=== PATIENT | female | born 1965 | race Hispanic/Latino ===

== ENCOUNTER → 2023-05-08 | Outpatient (CLI) | payer OTHER ==
[~2023-05-08] MED LIST: CITA10TA89 PO; ESTR0.5T2 PO; LIRA0.6P SQ; LISI1TAB53 PO; PRAV10TA39 PO; SITA1TBM4 PO; SUMA50TA17 PO
== END | disposition home or self-care (01) ==
LOC: RAH 07:09
PROVIDERS: ATTEND Internal Medicine Gastroenterology
DX: R10.13 Epigastric pain (principal); R68.81 Early satiety; R11.0 Nausea
CPT/HCPCS: 78264; A9541

== ENCOUNTER → 2023-06-04 | Outpatient (CLI) | payer OTHER ==
[2023-06-04 12:33] LABS: BILIRUBIN,TOTAL 0.4 mg/dL (0.2-1.0); CREATININE 0.9 mg/dL (0.5-1.5); POTASSIUM 4.5 mmol/L (3.5-5.1); TOTAL PROTEIN, SERUM 8.4 g/dL (6.0-8.3)
== END | disposition home or self-care (01) ==
LOC: LAB 09:03
PROVIDERS: ATTEND Student in an Organized Health Care Education/Training Program
DX: I10 Essential (primary) hypertension (principal); E78.2 Mixed hyperlipidemia
CPT/HCPCS: 36415; 80053; 80061

== ENCOUNTER 2024-05-04 17:26 | Emergency (ER) | payer OTHER ==
[~2024-05-04] VITALS: Ht 162.6 cm; Wt 112.5 kg
--- NOTE | 2024-05-04 18:57 | HMCIMG ---
CT PELVIS W/O CONTRAST REASON: inability to ambulate left lumbar pain COMPARISON: None TECHNIQUE: Axial images are obtained from iliac crests through the symphysis pubis with bone and soft tissue window presentation. Sagittal and coronal reconstruction images were then performed. FINDINGS: There are normal-appearing bones of the pelvis. There are no fractures. SI joints appear unremarkable. Proximal femurs appear normal. Soft tissues of the pelvis appear unremarkable as well. IMPRESSION: -1. Negative noncontrast CT pelvis.
[2024-05-04 18:58] LABS: APPEARANCE,URINE CLEAR (CLEAR); BILIRUBIN,URINE NEGATIVE (NEGATIVE); COLOR,URINE LIGHT-YELLOW (YELLOW); GLUCOSE, URINE (UA) NEGATIVE (NEGATIVE); KETONES,URINE NEGATIVE (NEGATIVE); LEUKOCYTE ESTERASE ,URINE NEGATIVE Leu/uL (NEGATIVE); NITRATE,URINE NEGATIVE (NEGATIVE); OCCULT BLOOD,URINE NEGATIVE (NEGATIVE); PH,URINE 5.5 (5.0-8.0); PROTEIN,URINE NEGATIVE (NEGATIVE); UROBILINOGEN,URINE 0.2 mg/dL (0.2-1.0)
[2024-05-04 19:08] LABS: ADD UA MICROSCOPIC NO
--- NOTE | 2024-05-04 19:11 | HMCIMG ---
CT LUMBAR SPINE W/O CONTRAST REASON: inability to ambulate left lumbar pain COMPARISON: None TECHNIQUE: Axial images are obtained from mid body T11 through the sacrum. Sagittal and coronal reconstruction images were then performed. FINDINGS: There is moderate to marked interspace narrowing at L4-5 with moderate narrowing at L5-S1. Remaining interspaces are preserved. There is normal vertebral body alignment. There are no compression or other fractures. There are no focal osseous lesions. Axial images show degenerative changes in the ligamentum flavum and in the facets. AP diameter is preserved. There is no focal spinal stenosis. There are no focal disc herniations. Surrounding soft tissues appear unremarkable. IMPRESSION: 1. Moderate degenerative changes in the disc interspaces as well as in the facets. 2. No evidence of disc herniation or focal spinal stenosis.
[2024-05-04 19:13] LABS: BASOPHILS # (AUTO) 0.07 K/uL (0.00-0.20); BASOPHILS % (AUTO) 0.6 % (0.0-5.0); EOSINOPHILS # (AUTO) 0.14 K/uL (0.00-0.70); EOSINOPHILS % (AUTO) 1.2 % (0.0-8.0); HEMATOCRIT 41.6 % (36-48); IMMATURE GRANULOCYTE ABSOLUTE 0.06 K/uL (0-1); LYMPHOCYTES # (AUTO) 4.6 K/uL (1.0-4.8); LYMPHOCYTES % (AUTO) 38.5 % (21.0-51.0); MEAN CORPUSCULAR HEMOGLOBIN 31.3 pg (27.0-33.0); MEAN CORPUSCULAR HGB CONC 34.4 g/dL (32.0-36.0); MONOCYTES # (AUTO) 0.9 K/uL (0.1-1.0); MONOCYTES % (AUTO) 7.8 % (3.0-13.0); NEUTROPHILS # (AUTO) 6.1 K/uL (1.8-7.7); NEUTROPHILS % (AUTO) 51.4 % (40.0-77.0); PLATELET COUNT (AUTO) 244 K/uL (130-400); RED BLOOD CELL COUNT(AUTO) 4.57 MIL/uL (4.00-5.50); RED CELL DISTRIBUTION WIDTH 12.9 % (11.0-15.5); WHITE BLOOD COUNT (AUTO) 11.8 K/uL (4.8-10.8)
[2024-05-04 19:15] LABS: CREATININE 0.8 mg/dL (0.5-1.0); POTASSIUM 3.9 mmol/L (3.5-5.1)
[2024-05-04] MEDS: ORPHENADRINE 60MG/2ML IVP ONE (19:27)
[2024-05-04] MEDS: ketOROlac 15MG/ML VIAL (15MG/ML) IV ONE (19:27)
[2024-05-04] MEDS ORDERED: KETO10TA2 PO (19:36)
[2024-05-04] MEDS ORDERED: CYCL10TA16 PO (19:36)
--- NOTE | 2024-05-04 19:37 | ERN ---
General Chief Complaint: Flank Pain Stated Complaint: FLANK PAIN Time Seen by MD: 18:06 Time Seen by Midlevel: 18:06 Source: patient History of Present Illness Initial Comments Patient is a 59-year-old female presenting to the emergency department with left lower back pain that radiates into her left gluteal area and onto her left leg. Patient reports sustaining a mechanical ground level fall proximally two weeks ago. She did report pain to her lower back but the pain improved over the following days. Patient states her pain started yesterday again. Today she was unable to ambulate secondary to pain. She denies any urinary/bowel incontinence. Denies any focal weakness or numbness. Pain is rated 10/10. Allergies: Coded Allergies: No Known Allergies (Unverified Allergy, Unknown, 07/28/22) Home Meds Active Scripts Cyclobenzaprine HCl (Flexeril) 10 Mg Tab, 10 MG PO BID for muscle sstiffness for 7 Days, #14 TAB 0 Refills Prov:MARIELOS GUTIERRES 05/04/24 Ketorolac Tromethamine (Ketorolac Tromethamine) 10 Mg Tablet, 1 TAB PO BID for pain for 5 Days, #10 TAB 0 Refills Prov:MARIELOS GUTIERRES 05/04/24 Reported Medications Pravastatin Sodium (Pravastatin Sodium) 10 Mg Tablet, 10 MG PO DAILY, TAB 07/28/22 Citalopram Hydrobromide (Citalopram HBr) 10 Mg Tablet, 10 MG PO DAILY, TAB 07/28/22 Lisinopril/Hydrochlorothiazide (Lisinopril-Hctz 20-25 mg Tab) 1 Each Tablet, 1 EACH PO DAILY, TAB 07/28/22 Sumatriptan Succinate (Sumatriptan Succinate) 50 Mg Tablet, 50 MG PO AD PRN for MIGRAINE HEADACHE, TAB 07/28/22 Liraglutide (Victoza 2-Polo) 0.6 Mg/0.1 Ml Pen.injctr, 1.8 MG SQ DAILY 07/28/22 Sitagliptin Phos/Metformin HCl (Janumet Xr 50-1,000 mg Tablet) 1 Each Tbmp.24hr, 2 EACH PO DAILY, TAB.SR 07/28/22 Estradiol (Estradiol) 0.5 Mg Tablet, 0.5 MG PO DAILY, TAB 07/28/22 Past Medical History Past Medical History: Diabetes-Type II, High Cholesterol, Hypertension, Kidney Stone, Other Medical History Other: SEASONAL ALLERGIES Past Surgical History: Hysterectomy Surgical History Other: D & C X 3 ROS Dictation CONSTITUTIONAL: Negative except for HPI HEAD/FACE: Negative except for HPI EENT: Negative except for HPI RESPIRATORY: Negative except for HPI GASTROINTESTINAL/ABDOMINAL: Negative except for HPI GENITOURINARY: Negative except for HPI MUSCULOSKELETAL: Negative except for HPI INTEGUMENTARY: Negative except for HPI NEUROLOGICAL/PSYCH: Negative except for HPI HEMATOLOGIC/LYMPHATIC: Negative except for HPI All Systems Negative, Except as noted above. 13 point review of systems assessed and all negative except for above. Physical Exam Physical Exam Dictation Vital Signs reviewed General Appearance: Alert, oriented x 3, no acute distress, well developed, nourished. Head and Face: non-traumatic. Eyes: PERRL, pink conjunctivas, eyelid no trauma, anterior chamber with arcus senilis. Ears: Pinnas intact and no signs of trauma or erythema ear canals clear and no discharge TM no erythema Nose: No discharge, no bleeding. Oropharynx: Mouth normal, tongue pink, pharynx clear,no erythema, tonsils no exudates, no abscesses noted, mucous membrane moist Neck: Supple, non-tender, no thyromegaly, no masses, no JVD, no bruits Breast:Deferred Chest:No tenderness, no crepitus, no paradoxical movement, no retractions Lungs:Clear, well-ventilated, symmetric, no rales, no wheezing, no rhonchi, no stridor, good breath sounds bilaterally Heart: Regular rate, regular rhythm, no murmur, no gallops Vascular: no peripheral edema, Abdomen: Soft, positive bowel sounds, nondistended, no guarding, nontender, no rebound, no masses no hepatomegaly, no splenomegaly, no Guzman's sign, no hernias. Rectal: Deferred Genital: Deferred Neurological: Normal speech, motor function intact, sensory function intact Musculoskeletal: Neck nontender, full range of motion, back nontender, full range of motion, Extremities: Limited range of motion the left lower extremity secondary to pain, sensation intact, distal pulses intact, normal capillary refill Skin: Color pink, dry, no turgor, no rash, no lacerations, no abrasions, no contusions. Lymphatic: Deferred Results Laboratory and Microbiology Lab and Micro Result Laboratory Tests Test 05/04/24 18:36 05/04/24 18:56 Urine Color LIGHT-YELLOW (YELLOW) Urine Appearance CLEAR (CLEAR) Urine pH 5.5 (5.0-8.0) Urine Specific [place] 1.020 (1.001-1.031) Urine Protein NEGATIVE mg/dL (NEGATIVE) Urine Glucose (UA) NEGATIVE mg/dL (NEGATIVE) Urine Ketones NEGATIVE mg/dL (NEGATIVE) Urine Occult Blood NEGATIVE (NEGATIVE) Urine Nitrate NEGATIVE (NEGATIVE) Urine Bilirubin NEGATIVE mg/dL (NEGATIVE) Urine Urobilinogen 0.2 mg/dL (0.2-1.0) Urine Leukocyte Esterase NEGATIVE Meir/uL White Blood Count 11.8 K/uL (4.8-10.8) H Red Blood Count 4.57 MIL/uL (4.00-5.50) Hemoglobin 14.3 g/dL (12.0-16.0) Hematocrit 41.6 % (36-48) Mean Corpuscular Volume 91.0 fL (79-99) Mean Corpuscular Hemoglobin 31.3 pg (27.0-33.0) Mean Corpuscular Hemoglobin Concent 34.4 g/dL (32.0-36.0) Red Cell Distribution Width 12.9 % (11.0-15.5) Platelet Count 244 K/uL (130-400) Mean Platelet Volume 11.5 fL (7.5-10.5) H Immature Granulocyte % (Auto) 0.5 % (0-1) Neutrophils (%) (Auto) 51.4 % (40.0-77.0) Lymphocytes (%) (Auto) 38.5 % (21.0-51.0) Monocytes (%) (Auto) 7.8 % (3.0-13.0) Eosinophils (%) (Auto) 1.2 % (0.0-8.0) Basophils (%) (Auto) 0.6 % (0.0-5.0) Neutrophils # (Auto) 6.1 K/uL (1.8-7.7) Lymphocytes # (Auto) 4.6 K/uL (1.0-4.8) Monocytes # (Auto) 0.9 K/uL (0.1-1.0) Eosinophils # (Auto) 0.14 K/uL (0.00-0.70) Basophils # (Auto) 0.07 K/uL (0.00-0.20) Absolute Immature Granulocyte (auto 0.06 K/uL (0-1) Nucleated Red Blood Cells 0.0 % (0.0-0.19) Sodium Level 139 mmol/L (136-145) Potassium Level 3.9 mmol/L (3.5-5.1) Chloride Level 102 mmol/L (101-111) Carbon Dioxide Level 31 mmol/L (21-32) Blood Urea Nitrogen 14 mg/dL (7-18) Creatinine 0.8 mg/dL (0.5-1.0) Glomerular Filtration Rate Calc 85 mL/min (>90) Random Glucose 115 mg/dL (70-105) H Total Calcium 9.2 mg/dL (8.5-10.1) Labs Reviewed?: Yes MDM MDM: Patient is a 59-year-old female presenting to the emergency department with left lower back pain that radiates into her left gluteal area and onto her left leg. Patient reports sustaining a mechanical ground level fall proximally two weeks ago. She did report pain to her lower back but the pain improved over the following days. Patient states her pain started yesterday again. Today she was unable to ambulate secondary to pain. She denies any urinary/bowel incontinence. Denies any focal weakness or numbness. Pain is rated 10/10. On physical examination the patient appears to be in moderate distress secondary to pain. She is sitting her right lateral decubitus because she was unable to tolerate her left lower leg. She was limited range motion of her left lower extremity secondary to pain however she was neurovascularly intact. Sensation is intact. There are good distal pulses with normal capillary refill. Given her recent fall I obtained a CT of the lumbar spine and CT pelvis to rule out any occult fracture. I obtain basic labs and a urinalysis to rule out a ureter stone. CBC and chemistries unremarkable. Her urinalysis not show any evidence of hematuria or infection. CT pelvis and CT lumbar did not show any acute injury. Patient was given pain medication in the emergency department and will be discharged home with supportive management. Differential diagnosis: Sciatica, thoracic fracture, herniated disc, There are no social concerns with this patient. Prescription drug management Prescriptions will include: Toradol and Flexeril Medical management and examination interpretation discussions were had by me with other qualified healthcare professionals as indicated for the patient's care. ED Course Orders Procedure Category Date Status Time Cbc With Differential LAB 05/04/24 Complete 18:26 Basic Metabolic Panel LAB 05/04/24 Complete 18:26 Urinalysis Profile LAB 05/04/24 Complete 18:26 Ct Lumbar Spine W/O CT 05/04/24 Resulted Contrast 18:26 Ct Pelvis W/O Contrast CT 05/04/24 Resulted 18:26 Ketorolac PHA 05/04/24 Complete Tromethamine 15mg/Ml 18:30 Orphenadrine Citrate PHA 05/04/24 Complete (Norflex) 18:30 Current Medications Medications (Trade) Dose Ordered Sig/Lilia Route PRN Reason Start Time Stop Time Status Last Admin Dose Admin Ketorolac Tromethamine (toRADol) 15 mg ONCE ONCE IV 05/04/24 18:30 05/04/24 18:31 DC 05/04/24 19:27 Orphenadrine Citrate (Norflex) 60 mg ONCE ONCE IVP 05/04/24 18:30 05/04/24 18:31 DC 05/04/24 19:27 Vital Signs Date Time Temp Pulse Resp B/P (MAP) Pulse Ox O2 Delivery O2 Flow Rate FiO2 05/04/24 20:00 98.1 61 17 160/72 97 Room Air* 0 21 05/04/24 19:15 98.1 61 18 177/67 98 Room Air* 0 05/04/24 17:27 97.9 78 16 158/72 97 Room Air 0 05/04/24 17:27 97.9 78 16 158/72 97 Room Air* [address] [address] IMAGING REPORT Signed PATIENT: RUBIO GUILLEN MR#: [id number] : 1965 SEX: F AGE: 59 LOCATION: [facility] ORDER 26 STATUS: REG ER [facility] REPORT#: [id number] SERVICE 25 REASON: inability to ambulate left lumbar pain ORDERING PHYSICIAN: MARIELOS GUTIERRES PROCEDURE: PELVIS WO - CT PELVIS W/O CONTRAST CT PELVIS W/O CONTRAST REASON: inability to ambulate left lumbar pain COMPARISON: None TECHNIQUE: Axial images are obtained from iliac crests through the symphysis pubis with bone and soft tissue window presentation. Sagittal and coronal reconstruction images were then performed. FINDINGS: There are normal-appearing bones of the pelvis. There are no fractures. SI joints appear unremarkable. Proximal femurs appear normal. Soft tissues of the pelvis appear unremarkable as well. IMPRESSION: -1. Negative noncontrast CT pelvis. DICTATED BY: JODY KHALIL MD DATE: 05/04/241849 ELECTRONICALLY SIGNED BY: JODY KHALIL MD DATE: 05/04/241856 [address] [address] IMAGING REPORT Signed PATIENT: RUBIO GUILLEN MR#: [id number] : 1965 SEX: F AGE: 59 LOCATION: ED ORDER 26 STATUS: REG ER REPORT#: [id number] SERVICE 25 REASON: inability to ambulate left lumbar pain ORDERING PHYSICIAN: MARIELOS GUTIERRES PROCEDURE: L SPIN WO - CT LUMBAR SPINE W/O CONTRAST CT LUMBAR SPINE W/O CONTRAST REASON: inability to ambulate left lumbar pain COMPARISON: None TECHNIQUE: Axial images are obtained from mid body T11 through the sacrum. Sagittal and coronal reconstruction images were then performed. FINDINGS: There is moderate to marked interspace narrowing at L4-5 with moderate narrowing at L5-S1. Remaining interspaces are preserved. There is normal vertebral body alignment. There are no compression or other fractures. There are no focal osseous lesions. Axial images show degenerative changes in the ligamentum flavum and in the facets. AP diameter is preserved. There is no focal spinal stenosis. There are no focal disc herniations. Surrounding soft tissues appear unremarkable. IMPRESSION: 1. Moderate degenerative changes in the disc interspaces as well as in the facets. 2. No evidence of disc herniation or focal spinal stenosis. DICTATED BY: JODY KHALIL MD DATE: 05/04/241906 ELECTRONICALLY SIGNED BY: JODY KHALIL MD DATE: 05/04/241910 DX & DISP Disposition: Discharge Departure Impression: Primary Impression: Sciatica, left side Condition: Stable Scripts Cyclobenzaprine HCl (Flexeril) 10 Mg Tab 10 MG PO BID for muscle sstiffness for 7 Days, #14 TAB 0 Refills Prov: MARIELOS GUTIERRES 05/04/24 Ketorolac Tromethamine (Ketorolac Tromethamine) 10 Mg Tablet 1 TAB PO BID for pain for 5 Days, #10 TAB 0 Refills Prov: MARIELOS GUTIERRES 05/04/24 Additional Instructions: Your blood work today is unremarkable. Your urinalysis does not show any evidence of infection. There was also no blood on your urinalysis. Your CT scan of your lower back and pelvis do not show any acute abnormalities. Your symptoms are most likely related to your sciatica. You were given pain medication in the emergency department. I have given you a prescription for Toradol and Flexeril for outpatient management. Please return to the ER for any new or worsening symptoms. Follow up with the primary care doctor in 2-3 days for repeat evaluation. Referrals: GEORGETTE ALVES MD (PCP) Time of Disposition: 19:35 I have reviewed the case, and I agree with, Diagnosis and Plan I performed the substantive portion of the visit. I have reviewed and personally made and approve the management plan that is documented in the note by myself or the RAKESH. I acknowledge for responsibility for the patient's management plan. MARIELOS GUTIERRES May 04, 2024 19:37 FELICIANO CARREON DO May 05, 2024 04:30
[2024-05-04 20:00] VITALS: BP 160/72; PULSE 61; RESP 17; TEMP 98.1; O2SAT 97
== END 2024-05-04 20:01 | disposition home or self-care (01) ==
LOC: EDH 17:26
DX: M54.42 Lumbago with sciatica, left side (principal); E11.9 Type 2 diabetes mellitus without complications; E78.00 Pure hypercholesterolemia, unspecified; I10 Essential (primary) hypertension; Z79.84 Long term (current) use of oral hypoglycemic drugs; Z79.85 Long-term (current) use of injectable non-insulin antidiabetic drugs; Z79.899 Other long term (current) drug therapy; Z90.710 Acquired absence of both cervix and uterus
CPT/HCPCS: 99285; 72131; 96374; 96375; 80048; 85025; 81003; 36415; 72192; J1885; J2360

== ENCOUNTER 2024-12-27 11:57 | Emergency (ER) | payer OTHER ==
[~2024-12-27] VITALS: Ht 162.6 cm; Wt 115.7 kg
[~2024-12-27 11:57] MED LIST changes: +CYCL10TA16 PO; +KETO10TA2 PO; +PRAV10TA37 PO; -PRAV10TA39 PO
[2024-12-27 12:20] LABS: IMMATURE GRANULOCYTE ABSOLUTE 0.09 K/uL (0-1); NUCLEATED RED BLOOD CELLS 0.0 % (0.0-0.19); PLATELET COUNT (AUTO) 238 K/uL (130-400); RED BLOOD CELL COUNT(AUTO) 4.81 MIL/uL (4.00-5.50); RED CELL DISTRIBUTION WIDTH 13.4 % (11.0-15.5); WHITE BLOOD COUNT (AUTO) 16.1 K/uL (4.8-10.8)
[2024-12-27] MEDS: 0.9%NACL 1000ML 1,000 ML IV ONE (12:25)
--- NOTE | 2024-12-27 12:26 | NUR ---
PENDING GFR RESULTS, IV SITE, & CONSENT FOR CT EXAM.
[2024-12-27 12:35] LABS: CREATININE 0.8 mg/dL (0.5-1.0); GLOMERULAR FILTR. RATE CALC 85.0 mL/min (>90); GLUCOSE,RANDOM 136.0 mg/dL (70-105); SODIUM SERUM 137.0 mmol/L (136-145); UREA NITROGEN, BLOOD 13.0 mg/dL (7-18)
[2024-12-27 12:39] VITALS: BP 138/63; PULSE 71; RESP 18; TEMP 98.7; O2SAT 97
[2024-12-27] MEDS ORDERED: IOHEXOL-350 75 ML VIAL IV ONE (13:33)
--- NOTE | 2024-12-27 14:20 | HMCIMG ---
EXAM: CT Abdomen and Pelvis with IV contrast CLINICAL HISTORY: llq abd pain hx of diverticulitis TECHNIQUE: Axial computed tomography images of the abdomen and pelvis with intravenous contrast. CONTRAST: with intravenous contrast. COMPARISON: Compared with the previous CT pelvis dated 05/04 FINDINGS: LUNG BASES: Mild bibasal dependent atelectatic changes in the bilateral lower lobes. No pleural effusions are seen. LIVER: The liver is enlarged in size. The right hepatic lobe measures up to 18.7 cm. Diffuse fatty infiltration of the liver. GALLBLADDER AND BILE DUCTS: Post-cholecystectomy status with surgical clips in situ. No biliary ductal dilatation is evident. PANCREAS: Unremarkable. SPLEEN: Unremarkable. ADRENAL GLANDS: Unremarkable. KIDNEYS, URETERS, AND BLADDER: Mild bilateral perinephric fat stranding, concerning for medical renal disease. There is no hydronephrosis or hydroureter. No urinary calculi are seen. STOMACH AND BOWEL: Colonic diverticulosis with the new onset of fat stranding adjacent to the proximal sigmoid colon can be a sign of diverticulitis. Unremarkable appearance of the stomach and the rest of the bowel. No evidence of bowel obstruction. No evidence suggesting enteritis or colitis. No abscess. No perforation. No obstruction APPENDIX: No evidence of acute appendicitis on CT examination. PERITONEUM: No free fluid. No free air. LYMPH NODES: No lymphadenopathy is evident. REPRODUCTIVE: Unremarkable as visualized. VASCULATURE: No evidence of abdominal aortic aneurysm. BONES AND SOFT TISSUES: No aggressive appearing osseous lesion. No acute osseous pathology is evident. Stable small umbilical hernia with fat within. IMPRESSION: 1. New onset of fat stranding adjacent to the proximal sigmoid colon, suggestive of acute diverticulitis. 2. Mild bilateral perinephric fat stranding, concerning for medical renal disease. 3. No other acute findings. /[place]
[2024-12-27] MEDS ORDERED: CIPR-278 PO (15:33)
[2024-12-27] MEDS ORDERED: METR-172 PO (15:33)
--- NOTE | 2024-12-27 15:33 | ERN ---
General Chief Complaint: Abdominal Pain Stated Complaint: ABDOMINAL PAIN LLQ Time Seen by MD: 12:01 Time Seen by Midlevel: 12:01 Source: patient History of Present Illness Initial Comments Patient is a 51-year-old female with a past medical history of diverticulitis presenting to the emergency department for evaluation left lower quadrant abdominal pain. Patient states her pain is similar to the previous times he has been diagnosed with diverticulitis. He specifically denies any fever, chills, or any other symptoms at this time Allergies: Coded Allergies: No Known Allergies (Unverified Allergy, Unknown, 07/28/22) Home Meds Active Scripts Metronidazole (Metronidazole) 500 Mg Tablet, 1 TAB PO BID for 10 Days, #20 TAB 0 Refills Prov:MARIELOS GUTIERRES 12/27/24 Ciprofloxacin HCl (Cipro) 500 Mg Tablet, 1 TAB PO BID for 10 Days, #20 TAB 0 Refills Prov:MARIELOS GUTIERRES 12/27/24 Cyclobenzaprine HCl (Flexeril) 10 Mg Tab, 10 MG PO BID for muscle sstiffness for 7 Days, #14 TAB 0 Refills Prov:MARIELOS GUTIERRES 05/04/24 Ketorolac Tromethamine (Ketorolac Tromethamine) 10 Mg Tablet, 1 TAB PO BID for pain for 5 Days, #10 TAB 0 Refills Prov:MARIELOS GUTIERRES 05/04/24 Reported Medications Pravastatin Sodium (Pravastatin Sodium) 10 Mg Tablet, 10 MG PO DAILY, TAB 07/28/22 Citalopram Hydrobromide (Citalopram HBr) 10 Mg Tablet, 10 MG PO DAILY, TAB 07/28/22 Lisinopril/Hydrochlorothiazide (Lisinopril-Hctz 20-25 mg Tab) 1 Each Tablet, 1 EACH PO DAILY, TAB 07/28/22 Sumatriptan Succinate (Sumatriptan Succinate) 50 Mg Tablet, 50 MG PO AD PRN for MIGRAINE HEADACHE, TAB 07/28/22 Liraglutide (Victoza 2-Polo) 0.6 Mg/0.1 Ml Pen.injctr, 1.8 MG SQ DAILY 07/28/22 Sitagliptin Phos/Metformin HCl (Janumet Xr 50-1,000 mg Tablet) 1 Each Tbmp.24hr, 2 EACH PO DAILY, TAB.SR 4/14/23 Estradiol (Estradiol) 0.5 Mg Tablet, 0.5 MG PO DAILY, TAB 07/28/22 Past Medical History Past Medical History: Diabetes-Type II, High Cholesterol, Hypertension, Kidney Stone, Sciatica, Other Medical History Other: SEASONAL ALLERGIES Past Surgical History: Hysterectomy Surgical History Other: D & C X 3 ROS Dictation CONSTITUTIONAL: Negative except for HPI HEAD/FACE: Negative except for HPI EENT: Negative except for HPI RESPIRATORY: Negative except for HPI GASTROINTESTINAL/ABDOMINAL: Negative except for HPI GENITOURINARY: Negative except for HPI MUSCULOSKELETAL: Negative except for HPI INTEGUMENTARY: Negative except for HPI NEUROLOGICAL/PSYCH: Negative except for HPI HEMATOLOGIC/LYMPHATIC: Negative except for HPI All Systems Negative, Except as noted above. 13 point review of systems assessed and all negative except for above. Physical Exam Physical Exam Dictation Vital Signs reviewed General Appearance: Alert, oriented x 3, no acute distress, well developed, nourished. Head and Face: non-traumatic. Eyes: PERRL, pink conjunctivas, eyelid no trauma, anterior chamber with arcus senilis. Ears: Pinnas intact and no signs of trauma or erythema ear canals clear and no discharge TM no erythema Nose: No discharge, no bleeding. Oropharynx: Mouth normal, tongue pink, pharynx clear,no erythema, tonsils no exudates, no abscesses noted, mucous memb jakob moist Neck: Supple, non-tender, no thyromegaly, no masses, no JVD, no bruits Breast:Deferred Chest:No tenderness, no crepitus, no paradoxical movement, no retractions Lungs:Clear, well-ventilated, symmetric, no rales, no wheezing, no rhonchi, no s tridor, good breath sounds bilaterally Heart: Regular rate, regular rhythm, no murmur, no gallops Vascular: no peripheral edema, Abdomen: Soft, positive bowel sounds, nondistended, no guarding, Left lower quadrant abdominal tenderness, no rebound, no masses no hepatomegaly, no splenomegaly, no Guzman's sign, no hernias. Rectal: Deferred Genital: Deferred Neurological: Normal speech, motor function intact, sensory function intact Musculoskeletal: Neck nontender, full range of motion, back nontender, full range of motion, Extremities: nontender, full range of motion Skin: Color pink, dry, no turgor, no rash, no lacerations, no abrasions, no contusions. Lymphatic: Deferred Results Laboratory and Microbiology Lab and Micro Result Laboratory Tests Test 12/27/24 12:17 White Blood Count 16.1 K/uL (4.8-10.8) H Red Blood Count 4.81 MIL/uL (4.00-5.50) Hemoglobin 15.2 g/dL (12.0-16.0) Hematocrit 44.0 % (36-48) Mean Corpuscular Volume 91.5 fL (79-99) Mean Corpuscular Hemoglobin 31.6 pg (27.0-33.0) Mean Corpuscular Hemoglobin Concent 34.5 g/dL (32.0-36.0) Red Cell Distribution Width 13.4 % (11.0-15.5) Platelet Count 238 K/uL (130-400) Mean Platelet Volume 11.2 fL (7.5-10.5) H Immature Granulocyte % (Auto) 0.6 % (0-1) Neutrophils (%) (Auto) 74.1 % (40.0-77.0) Lymphocytes (%) (Auto) 15.7 % (21.0-51.0) L Monocytes (%) (Auto) 8.8 % (3.0-13.0) Eosinophils (%) (Auto) 0.4 % (0.0-8.0) Basophils (%) (Auto) 0.4 % (0.0-5.0) Neutrophils # (Auto) 11.9 K/uL (1.8-7.7) H Lymphocytes # (Auto) 2.5 K/uL (1.0-4.8) Monocytes # (Auto) 1.4 K/uL (0.1-1.0) H Eosinophils # (Auto) 0.07 K/uL (0.00-0.70) Basophils # (Auto) 0.06 K/uL (0.00-0.20) Absolute Immature Granulocyte (auto 0.09 K/uL (0-1) Nucleated Red Blood Cells 0.0 % (0.0-0.19) Sodium Level 137 mmol/L (136-145) Potassium Level 3.5 mmol/L (3.5-5.1) Chloride Level 100 mmol/L (101-111) L Carbon Dioxide Level 28 mmol/L (21-32) Blood Urea Nitrogen 13 mg/dL (7-18) Creatinine 0.8 mg/dL (0.5-1.0) Glomerular Filtration Rate Calc 85 mL/min (>90) Random Glucose 136 mg/dL (70-105) H Lactic Acid Level 1.5 mmol/L (0.8-2.5) Total Calcium 9.2 mg/dL (8.5-10.1) Labs Reviewed?: Yes MDM MDM: Differential diagnosis: Diverticulitis, abscess, bowel perforation There are no social concerns with this patient. Prescription drug management Prescriptions will include: Cipro and Flagyl Medical management and examination interpretation discussions were had by me with other qualified healthcare professionals as indicated for the patient's care. ED Course Orders Procedure Category Date Status Time Cbc With Differential LAB 12/27/24 Complete 12:05 Basic Metabolic Panel LAB 12/27/24 Complete 12:05 Lactic Acid LAB 12/27/24 Complete 12:05 Ct Abdomen/Pelvis CT 12/27/24 Resulted W/Contrast 12:05 0.9%Nacl 1000ml (Ns PHA 12/27/24 Complete 1000ml) 12:30 Ketorolac PHA 12/27/24 Complete Tromethamine 15mg/Ml 12:30 Iohexol (Omnipaque) PHA 12/27/24 Complete 13:33 Metronidazole PHA 12/27/24 Complete 500mg/100ml Bag 14:30 Current Medications Medications (Trade) Dose Ordered Sig/Lilia Route PRN Reason Start Time Stop Time Status Last Admin Dose Admin Iohexol (Omnipaque) 75 ml STK-MED ONCE IV 12/27/24 13:33 12/27/24 13:33 DC Ketorolac Tromethamine (toRADol) 15 mg ONCE ONCE IV 12/27/24 12:30 12/27/24 12:31 DC 12/27/24 12:25 Metronidazole/ Sodium Chloride 100 ml @ 100 mls/hr ONCE ONCE IVPB 12/27/24 14:30 12/27/24 15:29 DC 12/27/24 14:49 Sodium Chloride 1,000 ml @ 0 mls/hr ONCE ONCE IV 12/27/24 12:30 12/27/24 12:31 DC 12/27/24 12:25 Vital Signs Date Time Temp Pulse Resp B/P (MAP) Pulse Ox O2 Delivery O2 Flow Rate FiO2 12/27/24 12:39 98.8 71 18 138/63 97 Room Air* 0 21 12/27/24 11:59 98.4 86 20 132/88 98 Room Air 0 [facility] [address] [place] [address] IMAGING REPORT Addendum PATIENT: RUBIO GUILLEN MR#: [id number] : 1965 SEX: F AGE: 59 LOCATION: [facility] ORDER 06 STATUS: REG ER REPORT#: [id number] SERVICE 120 REASON: llq abd pain hx of diverticulitis ORDERING PHYSICIAN: MARIELOS GUTIERRES PROCEDURE: ABD PEL W - CT ABDOMEN/PELVIS W/CONTRAST ADDENDUM REPORT ADDENDUM: Results were shared by telephone at 3:25 pm on 12/27/24 and acknowledged by MARIELOS Justin /[facility] EXAM: CT Abdomen and Pelvis with IV contrast CLINICAL HISTORY: llq abd pain hx of diverticulitis TECHNIQUE: Axial computed tomography images of the abdomen and pelvis with intravenous contrast. CONTRAST: with intravenous contrast. COMPARISON: Compared with the previous CT pelvis dated 05/04 FINDINGS: LUNG BASES: Mild bibasal dependent atelectatic changes in the bilateral lower lobes. No pleural effusions are seen. LIVER: The liver is enlarged in size. The right hepatic lobe measures up to 18.7 cm. Diffuse fatty infiltration of the liver. GALLBLADDER AND BILE DUCTS: Post-cholecystectomy status with surgical clips in situ. No biliary ductal dilatation is evident. PANCREAS: Unremarkable. SPLEEN: Unremarkable. ADRENAL GLANDS: Unremarkable. KIDNEYS, URETERS, AND BLADDER: Mild bilateral perinephric fat stranding, concerning for medical renal disease. There is no hydronephrosis or hydroureter. No urinary calculi are seen. STOMACH AND BOWEL: Colonic diverticulosis with the new onset of fat stranding adjacent to the proximal sigmoid colon can be a sign of diverticulitis. Unremarkable appearance of the stomach and the rest of the bowel. No evidence of bowel obstruction. No evidence suggesting enteritis or colitis. No abscess. No perforation. No obstruction APPENDIX: No evidence of acute appendicitis on CT examination. PERITONEUM: No free fluid. No free air. LYMPH NODES: No lymphadenopathy is evident. REPRODUCTIVE: Unremarkable as visualized. VASCULATURE: No evidence of abdominal aortic aneurysm. BONES AND SOFT TISSUES: No aggressive appearing osseous lesion. No acute osseous pathology is evident. Stable small umbilical hernia with fat within. IMPRESSION: 1. New onset of fat stranding adjacent to the proximal sigmoid colon, suggestive of acute diverticulitis. 2. Mild bilateral perinephric fat stranding, concerning for medical renal disease. 3. No other acute findings. /[place] DICTATED BY: MEL CUNNINGHAM MD DATE: 12/27/24 1531 ELECTRONICALLY SIGNED BY: DATE: EXAM: CT Abdomen and Pelvis with IV contrast CLINICAL HISTORY: llq abd pain hx of diverticulitis TECHNIQUE: Axial computed tomography images of the abdomen and pelvis with intravenous contrast. CONTRAST: with intravenous contrast. COMPARISON: Compared with the previous CT pelvis dated 05/04 FINDINGS: LUNG BASES: Mild bibasal dependent atelectatic changes in the bilateral lower lobes. No pleural effusions are seen. LIVER: The liver is enlarged in size. The right hepatic lobe measures up to 18.7 cm. Diffuse fatty infiltration of the liver. GALLBLADDER AND BILE DUCTS: Post-cholecystectomy status with surgical clips in situ. No biliary ductal dilatation is evident. PANCREAS: Unremarkable. SPLEEN: Unremarkable. ADRENAL GLANDS: Unremarkable. KIDNEYS, URETERS, AND BLADDER: Mild bilateral perinephric fat stranding, concerning for medical renal disease. There is no hydronephrosis or hydroureter. No urinary calculi are seen. STOMACH AND BOWEL: Colonic diverticulosis with the new onset of fat stranding adjacent to the proximal sigmoid colon can be a sign of diverticulitis. Unremarkable appearance of the stomach and the rest of the bowel. No evidence of bowel obstruction. No evidence suggesting enteritis or colitis. No abscess. No perforation. No obstruction APPENDIX: No evidence of acute appendicitis on CT examination. PERITONEUM: No free fluid. No free air. LYMPH NODES: No lymphadenopathy is evident. REPRODUCTIVE: Unremarkable as visualized. VASCULATURE: No evidence of abdominal aortic aneurysm. BONES AND SOFT TISSUES: No aggressive appearing osseous lesion. No acute osseous pathology is evident. Stable small umbilical hernia with fat within. IMPRESSION: 1. New onset of fat stranding adjacent to the proximal sigmoid colon, suggestive of acute diverticulitis. 2. Mild bilateral perinephric fat stranding, concerning for medical renal disease. 3. No other acute findings. /[place] DICTATED BY: MEL CUNNINGHAM MD DATE: 12/27/241518 ELECTRONICALLY SIGNED BY: MEL CUNNINGHAM MD DATE: 12/27/241518 DX & DISP Disposition: Discharge Departure Impression: Primary Impression: Acute diverticulitis Condition: Stable Scripts Metronidazole (Metronidazole) 500 Mg Tablet 1 TAB PO BID for 10 Days, #20 TAB 0 Refills Prov: MARIELOS GUTIERRES 12/27/24 Ciprofloxacin HCl (Cipro) 500 Mg Tablet 1 TAB PO BID for 10 Days, #20 TAB 0 Refills Prov: MARIELOS GUTIERRES 12/27/24 Additional Instructions: You has been diagnosed with a acute diverticulitis, which is inflammation or infection of the small patches in your colon. Take your antibiotics as prescribed. Finished course of antibiotics, even if he starts to feel better. For the 1st 2-3 days, follow a clear liquid diet this may include broths, clear juices, gelatin, and popsicles. Slowly advanced to a low-fiber diet. For example, white rice, white bread, eggs, yogurt, lean meats. Resume a regular high-fiber diet only after symptoms improve. Stay well hydrated. If you develop fever, rectal bleeding, worsening abdominal pain please report to the ER for further evaluation. Referrals: GEORGETTE ALVES MD (PCP) Time of Disposition: 15:46 I have reviewed the case, and I agree with, Diagnosis and Plan I performed the substantive portion of the visit. I have reviewed and personally made and approve the management plan that is documented in the note by myself or the RAKESH. I acknowledge for responsibility for the patient's management plan. MARIELOS GUTIERRES Dec 27, 2024 15:33
== END 2024-12-27 16:38 | disposition home or self-care (01) ==
LOC: EDH 11:57
DX: K57.92 Diverticulitis of intestine, part unspecified, without perforation or abscess without bleeding (principal); E11.9 Type 2 diabetes mellitus without complications; E78.00 Pure hypercholesterolemia, unspecified; I10 Essential (primary) hypertension; Z79.818 Long term (current) use of other agents affecting estrogen receptors and estrogen levels; Z79.84 Long term (current) use of oral hypoglycemic drugs; Z79.85 Long-term (current) use of injectable non-insulin antidiabetic drugs; Z79.899 Other long term (current) drug therapy; Z90.710 Acquired absence of both cervix and uterus
CPT/HCPCS: 99285; 74177; 96365; 96375; 80048; 85025; 83605; 36415; J1885; J3490; Q9967